=== PATIENT | female | born 1935 | race Caucasian/White ===

== ENCOUNTER → 2018-10-11 14:02 | Outpatient (CLI) | payer MEDICARE, SELFPAY ==
--- NOTE | 2018-10-11 14:39 | DI.MRI.S_ITS ---
PROCEDURE: MR LUMBAR SPINE WO CON INDICATIONS: Right hip, thigh and knee pain TECHNIQUE: Noncontrast sagittal T1 spin echo and T2 fast echo, sagittal STIR, axial T1 and T2 fast spin echo through the lumbar spine. In cases with scoliosis, additional coronal T2 fast spin echo may be performed. COMPARISON: None. FINDINGS: Image quality: Excellent. Alignment and Curvature: There is moderate dextroconvex scoliosis seen. There is mild retrolisthesis seen at L1-L2, L2-L3, and L3-L4. Mild grade 1 anterolisthesis is seen at L5-S1. No definite associated pars defects are seen. Bone Marrow: Marrow is of normal overall signal. No acute vertebral body compression fractures. Spinal Cord: Conus medullaris terminates at the L1 level. Visualized cord demonstrates normal signal and size. Paraspinous Soft Tissues: No paravertebral masses. T12-L1: No significant abnormality is seen. Bridging endplate osteophytes are noted anteriorly. L1-L2: Moderate to severe loss of disc height and disc signal are seen on the left side. Bridging endplate osteophytes are seen, which are most prominent on the left side. Moderate generalized disc bulge is seen. There is moderate left-sided and no significant right-sided neural foraminal narrowing seen. [id number] central canal narrowing is seen. L2-L3: There is moderate to severe loss of disc height signal, which is most prominent on the left side. Bridging endplate osteophytes are seen on the left. At least moderate disc bulge is seen. Moderate facet joint hypertrophy is seen. There is moderate right-sided and moderate to severe left-sided neural foraminal narrowing seen. There is a degree of compression seen upon the exiting left L2 nerve root. Moderate central canal narrowing is seen. L3-L4: Mild loss of disc height is seen. Loss of disc signal is seen. Mild generalized disc bulge is seen. At least moderate facet hypertrophy is seen. There is moderate to severe left-sided and severe right-sided neural foraminal narrowing seen. There is a degree of compression seen upon the exiting nerve roots. At least moderate central canal narrowing is seen. L4-L5: Mild loss of disc height is seen. Loss of disc signal is seen. Mild to moderate disc bulge is seen, which is eccentric to the right. There is moderate to prominent right-sided and mild to moderate left-sided facet hypertrophy seen. There is at least moderate right-sided neural foraminal narrowing seen. Minimal left-sided neural foraminal narrowing is seen. Mild central canal narrowing is seen. L5-S1: The disc height is well-preserved. Loss of disc signal is seen at this level. Mild generalized disc bulge is seen. Prominent facet hypertrophy is seen. There is moderate right-sided and minimal left-sided neural foraminal narrowing seen. Mild central canal narrowing is seen. IMPRESSION: Moderate dextroconvex scoliosis. Multiple levels of degenerative change are seen, which are overall most prominent at the L3-L4 level. Dictated by: Kyle Araiza M.D. on 10/11/2018 at 16:48 Approved by: Kyle Araiza M.D. on 10/11/2018 at 16:56
== END ==
PROVIDERS: Visit Provider Family Medicine
DX: M47.816 Spondylosis without myelopathy or radiculopathy, lumbar region (principal); M25.551 Pain in right hip; M79.651 Pain in right thigh; M25.561 Pain in right knee; M43.17 Spondylolisthesis, lumbosacral region; M41.9 Scoliosis, unspecified
CPT/HCPCS: 72148

== ENCOUNTER → 2019-11-26 11:28 | Outpatient (CLI) | payer MEDICARE, SELFPAY ==
--- NOTE | 2019-11-26 | DI.MRI.S_ITS ---
PROCEDURE: MR HEAD/BRAIN WO/W CON INDICATIONS: Headache TECHNIQUE: Noncontrast axial T1 spin echo, axial T2 fast spin echo, sagittal and axial FLAIR, coronal T2 fast spin echo, axial gradient echo, axial diffusion and ADC through the brain. After the administration of contrast, axial and coronal 3D VIBE or T1 spin echo with fat saturation through the brain. COMPARISON: None. FINDINGS: Image quality: Excellent. CSF Spaces: Basal cisterns are patent. No extra-axial fluid collections. Ventricles are normal in size and shape. Brain: No midline shift. No intracranial bleeds or masses. There is mild, diffuse cerebral volume loss. There are mild periventricular and subcortical white matter chronic microvascular ischemic changes. Chronic, small, lacunar infarcts involving the right thalamus and the bifrontal subcortical white matter. No abnormal intracranial enhancement. The brainstem appears normal. Diffusion-weighted images demonstrate no acute ischemic insults. No chronic ischemic insults. Normal intravascular flow voids are present. Skull and face: Calvarial marrow is normal in signal. Orbits appear normal. Sinuses: Sinuses and mastoids appear clear. IMPRESSION: 1. No acute intracranial disease process. 2. No abnormal adrenal mass or mass effect. 3. No areas of acute infarction. 4. No suspicious post contrast enhancement. 5. Chronic, small, lacunar infarcts involving the right thalamus and the bifrontal subcortical white matter. Dictated by: Dimple Allan MD, PhD on 11/26/2019 at 14:56 Approved by: Dimple Allan MD, PhD on 11/26/2019 at 15:00
== END ==
PROVIDERS: PCP Family Medicine; Referring Provider Family Medicine; Visit Provider Family Medicine
DX: R51 Headache (principal)
CPT/HCPCS: 70553; A9579